=== PATIENT | female | born 1985 | race Caucasian/White ===

== ENCOUNTER 2019-12-18 14:10 | Inpatient (IN) | payer MEDICAID, SELFPAY ==
[2019-12-18 14:22] VITALS: PULSE 86; RESP 16; TEMP 37; O2SAT 100; BMI 18.8
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
[2019-12-18 15:13] LABS: UPreg QC Valid YES; Urine Pregnancy NEGATIVE (NEGATIVE)
[2019-12-18 15:43] LABS: Amphetamine Screen Urine Not Detected (Not Detect); Barbiturates, Urine Not Detected (Not Detect); Benzodiazepines Screen Urine Not Detected (Not Detect); Cannabinoid Screen Urine Not Detected (Not Detect); Cocaine Screen Urine Not Detected (Not Detect); Opiate Screen Urine Not Detected (Not Detect); Phencyclidine Screen Urine Not Detected (Not Detect)
[2019-12-18 16:27] LABS: MANUAL DIFF FLAG NO
[2019-12-18 16:31] LABS: Basophils Absolute Auto 0.1 X10*3/uL (0.0-0.2); Basophils Percent Auto 1.7 % (0-2); Eosinophils Absolute Auto 0.1 X10*3/uL (0.0-0.4); Eosinophils Percent Auto 1.5 % (0-4); Hematocrit 39.1 % (37-47); Hemoglobin 13.4 g/dl (12.0-16.0); Imm Gran Abs Auto 0.03 X10*3/uL (0.00-0.03); Imm Gran Pct Auto 0.4 % (0.0-0.4); Lymphocytes Absolute Auto 1.2 X10*3/uL (1.2-4.9); Lymphocytes Percent Auto 16.9 % (20-40); Mean Corpuscular HGB Conc 34.3 g/dl (31.0-35.0); Mean Corpuscular Hemoglobin 31.3 pg (27.0-33.0); Mean Corpuscular Volume 91.4 fL (80-98); Monocytes Absolute Auto 0.7 X10*3/uL (0.1-1.2); Monocytes Percent Auto 9.3 % (2-11); Neutrophils Percent Auto 70.2 % (45-73); Platelet Count 372 X10*3/uL (160-400); Red Blood Count 4.28 X10*6/uL (4.20-5.50); Red Cell Distribution Width 12.6 % (11.0-16.0); White Blood Count 7.2 X10*3/uL (4.8-10.8)
[2019-12-18 16:46] LABS: Ethanol < 10 mg/dL
[2019-12-18 16:49] LABS: Alanine Aminotransferase 26 U/L (0-31); Albumin Level 4.2 g/dL (3.5-5.0); Alkaline Phosphatase 63 U/L (39-117); Anion Gap 12 (12-20); Aspartate Amino Transferase 27 U/L (5-31); Bilirubin Total 0.3 mg/dL (0.0-1.0); Blood Urea Nitrogen 12 mg/dL (9-16); Calcium 9.1 mg/dL (8.4-10.2); Carbon Dioxide 25 mmol/L (22-29); Chloride 105 mmol/L (96-108); Creatinine Clr Calc Pharmacy 79.9; Estimated Glomerular Filt Rate > 60; Glucose Random 94 mg/dL (60-115); Potassium 4.2 mmol/l (3.3-5.1); Sodium 138 mmol/L (135-145)
--- NOTE | 2019-12-18 18:29 | PC.NURSE ---
PT HAS ESCALATING ANGRY BEHAVIOR, EPISODES OF SCREAMING AND CRYING PT IS REDIRECTABLE
--- NOTE | 2019-12-18 19:20 | PC.NURSE ---
Report taken from Blu, this RN resuming care. Per previous RN, pt was sent here after being Section 12ed by [facility] outpatient for scattered thoughts and erratic behavior. Pt denies SI/HI. Pt found sitting upright in bed, awake and alert, crying intermittently, cooperative at this time. Continue to monitor.
--- NOTE | 2019-12-18 20:28 | PC.NURSE ---
Patient standing in her room/pacing/tearful but refused every offered medication calm her down. Patient is delusional thinks she had bad constipation but reported that she had bowel movement this morning and last night. Comments were tangential. Requesting for healthy food. Patient mood seems depressed and affect congruent to the mood. BHN saw the patient and spoke with provider updated the disposition, patient is on section 12 in patient bed search. Will continue to monitor.
--- NOTE | 2019-12-18 23:39 | PC.NURSE ---
Patient in her room standing, manic, eating and hydrating, mood appears sad/depressed/tired refused to take any medication help her or make less anxious. Will continue to monitor.
--- NOTE | 2019-12-19 01:51 | PC.NURSE ---
Patient still awake, in/out of bathroom multiple times fixated on elimination on both bowel and bladder. Complain of constipation blaming apple she had earlier for the cause of constipation, will continue to monitor
[2019-12-19 02:10] VITALS: BP 149/91; PULSE 98; RESP 16; TEMP 36.7
--- NOTE | 2019-12-19 02:27 | PC.NURSE ---
Patient continues fixation on her constipation, bowel assessment done, bowel sounds hyper active all quadrants, patient made aware but refused to accept the fact her bowel sounds are active, wanted something to take, provider notified/ordered milk of magnesium, offered to patient but refused to take MOM on the ground her trust has been violated and reported that she just bowel movement. Will continue to monitor.
[2019-12-19 04:00] VITALS: RESP 16
--- NOTE | 2019-12-19 04:33 | PC.NURSE ---
Patient in bed appears sleeping, no distress observed/reported, respiration =/=/non-labored bilaterally. Will continue to monitor.
--- NOTE | 2019-12-19 06:21 | PC.NURSE ---
Patient in bed appears sleeping. No distress observed/reported. respiration +/=/non-labored bilaterally. Safety check maintained as ordered. Will continue to monitor
--- NOTE | 2019-12-19 07:34 | PC.NURSE ---
REPORT RECEIVED FROM JUSTEN GRAY. PT AWAKE, TEARFUL, REPORTS SHE IS 'SCARED' STATES THAT SHE DOES NOT TRUST STAFF IN ED, FEELS THAT PEOPLE ARE 'TRICKING HER.' PT VERY FOCUSED ON DIET, STATING THAT SHE WANTS TO BE HEALTHY.'
--- NOTE | 2019-12-19 08:59 | PC.NURSE ---
PT AWAKE, ALERT, AFFECT ANXIOUS.
[2019-12-19 10:33] VITALS: BP 135/73; PULSE 104; RESP 16; TEMP 36.7; O2SAT 100
--- NOTE | 2019-12-19 10:43 | PC.NURSE ---
PT CONTINUES TO BE PERSEVERATIVE RE: FOOD, REQUESTING FRUIT, STATES THAT SHE IS WORRIED ABOUT FOODS THAT MAY TRIGGER HER PTSD.
--- NOTE | 2019-12-19 12:40 | PC.NURSE ---
Pt awake, has made and received several calls. Pt is aware that BHN will be returning for an MSU. Pt is also aware that a psychiatric consult has been ordered.
--- NOTE | 2019-12-19 14:23 | PC.NURSE ---
dr. Samm Palacio in to see pt.
--- NOTE | 2019-12-19 15:32 | PC.NURSE ---
Pt reports she is willing to try medications as recommended by Dr. Samm Palacio. Reviewed w/ C Ann- medications ordered. Pt currently on the telephone.
[2019-12-19] MEDS: risperiDONE 0.5 MG TABLET PO (15:44)
--- NOTE | 2019-12-19 16:44 | PC.NURSE ---
Pt writing, states that writing is helpful.
[2019-12-19 17:05] VITALS: BP 129/87; PULSE 87; RESP 20; TEMP 36.2; O2SAT 97
--- NOTE | 2019-12-19 17:21 | PC.NURSE ---
Pt reporting that she is feeling better. Pt able to converse with staff, less focused on food.
--- NOTE | 2019-12-19 18:27 | PC.NURSE ---
Pt demanding to speak with a doctor, wants to be discharged, I feel that my PCP should know. I need to be home with my family . Re-educated on being a section 12 bed search.
--- NOTE | 2019-12-19 19:13 | PC.NURSE ---
Pt reporting that she is feeling better, would like to go home, demanding to be discharged. Discussed w/ pt the progress she has made today, and the fact that she has just begun a medication which may be helping her to feel better. Pt thoughtful, willing to reconsider.
--- NOTE | 2019-12-19 19:26 | PC.NURSE ---
Per report patient had good response to Resperidol, patient seems pleasant and coherent at this time. Will continue to monitor.
[2019-12-19 21:22] VITALS: RESP 18
--- NOTE | 2019-12-19 23:13 | PC.NURSE ---
Patient in bed resting, in/out of batroom multiple times. Hydrating well. No distress reported. Will continue to monitor.
--- NOTE | 2019-12-20 00:57 | PC.NURSE ---
Patient in bed appears sleeping, no distress observed/reported, respiration +/=/non-labored bilaterally. Will continue to monitor.
--- NOTE | 2019-12-20 02:19 | PC.NURSE ---
Patient in bed appears sleeping, no distress observed/reported, respiration +/=/non-labored bilaterally, will continue to monitor
[2019-12-20 04:25] VITALS: BP 129/80; PULSE 100; RESP 16; TEMP 36.7; O2SAT 100
[2019-12-20] MEDS: risperiDONE 0.5 MG TABLET PO ×2 (04:37→09:43)
--- NOTE | 2019-12-20 04:38 | PC.NURSE ---
Patient up in/out of her room, wandering in her room/pod, frequently visiting bathroom, drinking water more than adequate. Denied distress. Patient alert and coherent. Will continue to monitor.
--- NOTE | 2019-12-20 06:50 | PC.NURSE ---
Patient was up early, no behavior issue, patient engaged in over hydrating behavior, educated patient to drink water in moderation. Requested her medication, advised not due at. Denied distress Will continue to monitor.
--- NOTE | 2019-12-20 07:19 | PC.NURSE ---
Report received from Enrico. Pt awake at current, calm, speaking with other RN. Pt is still a section 12 bed search.
[2019-12-20 10:42] VITALS: BP 123/78; PULSE 105; RESP 20; TEMP 36.8
--- NOTE | 2019-12-20 11:11 | PC.NURSE ---
Pt currently standing in her doorway. Calm, no apparent distress. No complaints at this time. Continues to be a section 12 bed search
--- NOTE | 2019-12-20 13:15 | PC.NURSE ---
Pt eating lunch at current. Calm, no complaints. Continues to be a section 12 bed search.
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
--- NOTE | 2019-12-20 14:48 | PC.NURSE ---
Pt currently in room, awake. No complaints at this time. Calm. Continues to be a section 12 bed search.
--- NOTE | 2019-12-20 16:32 | PC.NURSE ---
Pt awake, alert- in room at this time, coloring. Pt appears to be less focused on food and discharge from unit.
[2019-12-20 16:34] VITALS: BP 135/88; PULSE 86; RESP 20; TEMP 36.3; O2SAT 100
--- NOTE | 2019-12-20 18:46 | PC.NURSE ---
pt awake alert, eating dinner. pt appears less rigid and anxious re: food choice. Pt willing to eat the meal delivered to her, which was turkey.
[2019-12-20] MEDS: risperiDONE 1 MG TABLET PO (20:02)
[2019-12-20 21:34] VITALS: BP 121/83; PULSE 98; RESP 20; TEMP 36.4; O2SAT 100
--- NOTE | 2019-12-20 21:40 | PC.NURSE ---
Patient in her room appears sleeping at this time, no distress reported/observed. Patient was compliant with her HS po medication. Compliant with vital sign assessment/WNL/documented. Patient appears coherent. Will continue to monitor.
--- NOTE | 2019-12-20 23:20 | PC.NURSE ---
Patient in bed appears sleeping, no distress observed/reported, respiration +/=/non-labored bilaterally. Will continue to monitor.
--- NOTE | 2019-12-21 01:52 | PC.NURSE ---
Patient in bed appears sleeping comfortably, no distress observed/reported, respiration +/=/non-labored bilaterally. Will continue to monitor.
--- NOTE | 2019-12-21 05:52 | PC.NURSE ---
Patient in bed appears sleeping, no distress observed/reported, respiration +/=/non-labored bilaterally. Will continue to monitor.
--- NOTE | 2019-12-21 06:20 | PC.NURSE ---
Patient in bed appears sleeping, no distress observed/reported. respiration +/=/non-labored bilaterally. Will continue to monitor.
--- NOTE | 2019-12-21 07:48 | PC.NURSE ---
Report received from JUSTEN Weston- pt's father called from [place]. Per father, pt has been reporting that she has not been getting care in the pod. Pt gave permission on arrival to speak with father. Father reminded that pt has been evaluated and seen by express manager, and that staff regularly check in with pt. Father requesting that this be reviewed with pt. Reviewed conversation with Asad- pt became very irritable, demanding to see a doctor, stating that conventional underwriter 'promised my father I would see a doctor.' Dr. Recio notified that pt is demanding to see an MD. Dr Recio in to evaluate.
[2019-12-21] MEDS: risperiDONE 1 MG TABLET PO ×2 (08:44→20:35)
[2019-12-21 12:00] VITALS: BP 134/87; PULSE 102; RESP 18; TEMP 36.1; O2SAT 100
--- NOTE | 2019-12-21 15:52 | PC.NURSE ---
Pt in room, watching television. during check in, pt reported that she is doing all right, although she states that she never realized how unaware of time she was before arriving here.
[2019-12-21 17:18] VITALS: BP 135/91; PULSE 96; RESP 20; TEMP 36.6; O2SAT 100
[2019-12-21 21:52] VITALS: BP 103/76; PULSE 110; RESP 20; TEMP 36.3; O2SAT 100
--- NOTE | 2019-12-21 22:00 | PC.NURSE ---
1900: patient has calm affect, but remains hyperverbal. patient is in and out of room making phone calls and watching tv. patient offered snacks and drinks. patient educated on side effect of new medication can be hunger. patient offered verbal ressaurance. 2100: patient a and o x 4. patient denies needs. monitoring at this time. 2200: patient sleeping, airway patient vs stable.
--- NOTE | 2019-12-22 00:24 | PC.NURSE ---
2200: PATIENT SLEEPING AT THIS TIME. SKIN P/W/D. AIRWAY PATENT. ABLE TO REPOSITION SELF IN BED. 2300: PATIENT SLEEPING AT THIS TIME. SKIN P/W/D. AIRWAY PATENT. ABLE TO REPOSITION SELF IN BED. 0000: PATIENT SLEEPING AT THIS TIME. SKIN P/W/D. AIRWAY PATENT. ABLE TO REPOSITION SELF IN BED.
--- NOTE | 2019-12-22 04:28 | PC.NURSE ---
0200: patient sleeping at this time. skin p/w/d. airway patent. [id number]: patient sleeping at this time. skin p/w/d. airway patent.
[2019-12-22 06:50] VITALS: BP 129/80; PULSE 116; RESP 16; TEMP 36.6; O2SAT 98
--- NOTE | 2019-12-22 07:15 | PC.NURSE ---
Report received. PT is standing in her doorway. She just asked about morning medications. Calm and cooperative. Bed search in progress.
[2019-12-22] MEDS: risperiDONE 1 MG TABLET PO ×2 (08:17→20:59)
[2019-12-22 09:28] VITALS: BP 130/80; PULSE 94; RESP 18; TEMP 36.9; O2SAT 100
--- NOTE | 2019-12-22 09:44 | PC.NURSE ---
PT is sitting in her room. Calm and cooperative. No other complaints
--- NOTE | 2019-12-22 11:13 | PC.NURSE ---
PT is sitting in her room. Calm and cooperative. No complaints at this time.
--- NOTE | 2019-12-22 13:24 | PC.NURSE ---
PT is working around the unit. Calm and cooperative. Waiting to be transferred to .
[2019-12-22 13:40] LABS: SARS COV2 PCR INHOUSE NEGATIVE (Negative)
--- NOTE | 2019-12-22 15:00 | PC.NURSE ---
PT is resting in bed. Calm and cooperative. No other complaints.
[2019-12-22 16:22] VITALS: RESP 18
--- NOTE | 2019-12-22 16:30 | MHC.CARE ---
CARE team met with this patient in ED pod bed 6 to facilitate transfer/admission to . Patient is being admitted voluntarily and signed CV.
[2019-12-22 18:00] VITALS: BP 118/74; PULSE 105; TEMP 36.7; O2SAT 99
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
[2019-12-23 06:35] VITALS: BP 134/84; PULSE 90; RESP 14; TEMP 35.9; O2SAT 99
[2019-12-23] MEDS: risperiDONE 1 MG TABLET PO ×2 (08:16→20:19)
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
[2019-12-23] MEDS: Flu Vacc QS2020-21(6mos up)/PF 0.5 ML SYRINGE IM (16:21)
[2019-12-23 18:00] VITALS: BP 139/81; PULSE 109; TEMP 36.9
[2019-12-24 06:00] VITALS: BP 126/82; PULSE 113; TEMP 36.7
[2019-12-24] MEDS: risperiDONE 1 MG TABLET PO ×2 (09:02→20:20)
--- NOTE | 2019-12-24 14:07 | HO.PSYCHPN ---
Subjective Subjective Date of Service: 12/24/19 Reason For Visit: crisis Subjective Notes: Conditional Voluntary and 3 Day Interim History: Asad has been calmer and more able to process information. She is taking care of her basic needs. She has no SI. SW is to contact partner for collateral information and to make referrals. Medication Compliance: Yes Side effects from medications: No Attending Groups: Yes Review of Systems Acute medical concerns: No Medical Review of Systems: unchanged Mental Status Exam Mental Status Exam Patient Appearance: Well Grooomed Patient Orientation: Person, Place and Time Level of Consciousness: Awake Patient Behavior: Appropriate and Good Eye Contact Mood Description: Calm, Constricted and Anxious Affect Description: Calm and Fearful Patient Cognition Impaired: Yes Ability to Follow Directions: Good Speech Pattern: Clear and Monotone Memory Description: Intact Hallucinations: None Delusions: Paranoid Ideation Thought Process: Rumination Thought Content: positive for Obsessional Thoughts, positive for Preoccupation, negative for Suicidal Ideation and negative for Homicidal Ideation Depressive Symptoms: Increased Anxiety, Diff. Making Decisions, Hopelessness and Difficulty Concentrating Judgement: Fair Diagnostics Vital Signs (24Hr): Vital Signs - 24 hr 12/23/19 18:00 12/24/19 06:00 Temperature 98.5 F 98.0 F Pulse Rate 109 H 113 H Blood Pressure 139/81 126/82 Body Mass Index 18.8 Labs Results: 12/18/19 16:21 12/18/19 16:21 Medications Medications Current Medications Generic Name Dose Route Start Last Admin Trade Name Freq PRN Reason Stop Dose Admin Acetaminophen 650 mg 12/23/19 05:25 Acetaminophen 325 Mg Tablet PO Q6H PRN Headache/Pain Mild Scale (1-3) Al Hydroxide/Mg Hydroxide 30 ml 12/23/19 05:25 Magnesium Hydrox/Alum Hydrox 30 Ml Oral.Susp PO Q6H PRN Heartburn/Nausea Hydroxyzine HCl 25 mg 12/23/19 05:25 Hydroxyzine Hcl 25 Mg Tablet PO BEDTIME PRN Anxiety Lorazepam 1 mg 12/22/19 19:43 Lorazepam 1 Mg Tablet PO Q4H PRN anxiety/restlessness Magnesium Hydroxide 30 ml 12/23/19 05:25 Milk Of Magnesia 30 Ml Oral.Susp PO DAILY PRN Constipation Risperidone 1 mg 12/20/19 21:00 12/24/19 09:02 Risperidone 1 Mg Tablet PO 1 mg BID ARIEL Administration Trazodone HCl 50 mg 12/23/19 05:25 Trazodone Hcl 50 Mg Tablet PO BEDTIME PRN Insomnia Allergies Allergies Allergy/AdvReac Type Severity Reaction Status Date / Time No Known Allergies Allergy Verified 12/18/19 14:08 Assessment & Plan Assessment & Plan (1) PTSD (post-traumatic stress disorder): Status: Acute Code(s): F43.10 - Post-traumatic stress disorder, unspecified Assessment and Plan: CT risperdal. Skills Referrals Greater than 50% of the session was spent on counseling and/or coordination of care Patient educated on: diagnosis and medication risk/benefits Informed Consent: further education needed Reason for contiued inpatient stay Substantial Risk for: rapid decompensation
[2019-12-24 16:31] VITALS: BP 132/79; PULSE 100; TEMP 37.1; O2SAT 98
[2019-12-25 06:37] VITALS: BP 114/66; PULSE 98; RESP 16; TEMP 36; O2SAT 99
[2019-12-25] MEDS: risperiDONE 1 MG TABLET PO (08:24)
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
== END 2019-12-25 15:59 | disposition home or self-care (01) | DRG 755 ==
LOC: HO.ED 12-22 16:43 → HO.PM5 12-22 18:09
PROVIDERS: Nurse Practitioner Family; Physician Assistant; Admitting Provider Psychiatry & Neurology Psychiatry; Emergency Provider Emergency Medicine; PCP Family Medicine; Visit Provider Psychiatry & Neurology Psychiatry
DX: F43.10 Post-traumatic stress disorder, unspecified (principal); Z91.14 Patient's other noncompliance with medication regimen; Z20.828 Contact with and (suspected) exposure to other viral communicable diseases; Z23 Encounter for immunization; Z79.899 Other long term (current) drug therapy
CPT/HCPCS: 36415; 80053; 80307; 80320; 81025; 85025; 87635; 90686; 99285